=== PATIENT | male | born 1950 | race African-American/Black ===

== ENCOUNTER 2016-11-18 15:22 | Inpatient (IN) | payer MEDICARE ==
--- NOTE | ~2016-11-18 | HP ---
Unit #: [id number] #: [id number] Patient: SEBAS BARONE [id number] [facility]. [place], [place] [address] [id number] E MR#: [id number] NAME: SEBAS BARONE ROOM: Age: 66 Sex: M Admission Date: 11/18/2016 : 1950 Attending Physician: Luke Zeng D.O. Primary Care Physician: Autumn Rodriguez M.D. HISTORY AND PHYSICAL CHIEF COMPLAINT Increased confusion. HISTORY OF PRESENT ILLNESS The patient is a 66-year-old male with a past medical history of cerebrovascular accident, hypertension, hyperlipidemia, chronic kidney disease, CHF, and diabetes, who presented to the emergency department for evaluation of the above. The patient has had a five-day history of increasing generalized weakness. He has also had progressive speech problems for the past three days. The patient apparently had abnormal speech following a stroke in 1991 with some residual left-sided weakness. His speech apparently returned to normal until the past couple of days. The patient has also been generally weak. Per family, he was able to sit up but then was apparently falling to one side. He did apparently have a fall from a seated position five days ago. There was no loss of consciousness. He has not had any fever and no cough or cold symptoms. He has had constipation with the last bowel movement being three days ago. Upon arrival in the emergency department, the patient's pulse and blood pressure were 78 and 133/76, respectively. A CT of the head shows no acute abnormality. Laboratory is notable for BUN and creatinine of 23 and 1.8, respectively. Urinalysis is pending. He is being admitted to [facility] for evaluation and further treatment. PAST MEDICAL HISTORY 1. Admission to [facility] January 12-2012, for hypotension. 2. Cerebrovascular accident in 1991 with residual left-sided weakness and abnormal speech. 3. Congestive heart failure with no echocardiogram results in [facility]. 4. Hypertension. 5. Diabetes with peripheral neuropathy. 6. Chronic kidney disease. PAST SURGICAL HISTORY Cholecystectomy. SOCIAL HISTORY Patient quit smoking two years ago. He walks with a walker. There is no alcohol use. FAMILY HISTORY Unit #: [id number] #: [id number] Patient: SEBAS BARONE Notable for his mother having diabetes. ALLERGIES No known allergies. HOME MEDICATIONS 1. Aspirin. 2. Colace. 3. Folic acid. 4. Gabapentin. 5. Hydrochlorothiazide. 6. Lantus. 7. Lisinopril. 8. Omeprazole. 9. Plavix. 10. Iron. 11. Pyridoxine. 12. Harvoni. 13. Vitamin B12. 14. Simvastatin. Home medications will need to be reviewed and verified. REVIEW OF SYSTEMS A 10-point review of systems is negative except as indicated in the History of Present Illness. The patient states that his blood sugars have been in the 200s. PHYSICAL EXAMINATION VITAL SIGNS: Temperature is 97.4, pulse 78, respirations 16, blood pressure 133/76, and oxygen saturation is 100% on room air. GENERAL: Patient is an male who is awake and alert. HEENT: Head is atraumatic. Mucous membranes are moist. NECK: Supple. Trachea is midline. CARDIOVASCULAR: Regular rate and rhythm. LUNGS: Clear to auscultation bilaterally with no increased work of breathing. ABDOMEN: Soft and nontender with bowel sounds present in all four quadrants. EXTREMITIES: Nontender with no pedal edema. NEUROLOGIC: Patient is awake and alert. He is oriented x3. He follows commands. Speech is somewhat slurred. He is slow to answer questions. There is no facial asymmetry. Tongue is midline. There is no appreciable pronator drift. Rapid alternating movements are intact. Retail Pos Specialist strength is symmetric. PSYCHIATRIC: Mood and affect are normal. Patient is cooperative. SKIN: Skin of examined areas is warm and dry. DIAGNOSTIC STUDIES LABORATORY: Complete blood count is notable for MCV of 81.5. INR is 0.9. Comprehensive metabolic panel notable for sodium of 133, glucose 173, BUN and creatinine 23 and 1.8, respectively, and albumin is 3. Tylenol and salicylate levels are negative. Alcohol level is 5. IMAGING: CT of the head shows nothing acute. ASSESSMENT The patient is a 66-year-old male with: Unit #: [id number] #: [id number] Patient: SEBAS BARONE 1. Abnormal speech. The family was also concerned about increased left-sided weakness, although by my exam weakness appears to be generalized and symmetric. 2. Generalized weakness. 3. History of cerebrovascular accident with residual left-sided weakness and speech abnormality. 4. Hypertension. 5. Hyperlipidemia. 6. Chronic kidney disease. The patient's creatinine was 2 on October 23, 2016. It was 1.8 today. 7. Congestive heart failure with unknown ejection fraction. 8. Diabetes with peripheral neuropathy. 9. Former smoker. PLAN 1. Admit to intermediate level for observation. 2. N.p.o. until speech evaluation. 3. Speech Therapy to evaluate and treat. 4. Neuro checks q.4 hours. 5. MRI of the brain without contrast. 6. Consult Dr. Maciel regarding abnormal speech. 7. Stroke protocol per Neurology. 8. Bedrest. 9. Fall precautions. 10. Normal saline bolus, followed by normal saline at 75 mL/hour. 11. Check urinalysis. 12. Strict I/Os. 13. Serial cardiac enzymes. 14. EKG if not done. 15. Hemoglobin A1c. 16. Low-dose sliding scale insulin with Accu-Cheks. 17. Repeat labs in the morning. 18. SCDs for DVT prophylaxis. 19. Additional workup and consultants based on above. 1. Dictated by Nga Pham M.D. ELIDA/mckay TD: 11/18/2016 16:57 JOB #: [id number] HISTORY AND PHYSICAL X Nga Pham MD X HISTORY AND PHYSICAL
--- NOTE | ~2016-11-18 | CT71 ---
[facility] A Service of [facility] & [facility] RADIOLOGY TEXT RESULTS PATIENT: SEBAS BARONE LOCATION: C3A 339-01 : [birth year] UNIT #: [id number] AGE: [address]: Nga Pham MD SEX: M ORDER DR: [id number] [facility]. [place], [place] [address] [id number] I MR#: [id number] Acc #: [id number] NAME: SEBAS BARONE : 1950 SEX: M STUDY DATE/TIME: 11/18/2016 14:21 UNIT: CEDOF ROOM: [id number] STUDY DESCRIPTION: CT Head Wo Contrast Attending Physician: Nga Pham M.D. Ordering Physician: Luke Zeng D.O. Primary Care Physician: Autumn Rodriguez M.D. MEDICAL IMAGING REPORT This report is preliminary unless electronic signature is present EXAM Noncontrast CT of the head. DATE OF EXAM 11/18/2016 at 14:21 HISTORY 66-year-old male with confusion, weakness for 3 days. Previous history of stroke. Hypertension. Diabetes. COMPARISON Noncontrast CT head, 10/19/2013. TECHNIQUE NOTE: This CT exam was performed with one or more of the following radiation dose reduction techniques: automatic exposure control, adjustment of mA and/or kV according to patient size, and iterative reconstruction. FINDINGS Multifocal chronic-appearing bilateral lacunar infarcts are demonstrated within bilateral basal ganglia, thought to be similar to the prior exam. Hypodensities in the deep white matter of the brain are thought to represent changes of chronic microvascular disease, greatest in bifrontal regions, right greater left. Mcdermott matter - white matter junction distinction appears preserved, without convincing CT evidence of acute or evolving infarct. No acute intracranial hemorrhage, mass lesion, mass effect, midline shift is seen. There is dense mucosal thickening within bilateral ethmoid sinuses, left greater than right, suggesting features of sinusitis. Mastoid air cells are clear. Moderately advanced generalized parenchymal atrophy is present, greater than expected for the patient's stated age. Chronic-appearing infarct [facility] A Service of [facility] & [facility] RADIOLOGY TEXT RESULTS PATIENT: SEBAS BARONE LOCATION: C3A 339-01 : 48 UNIT #: [id number] AGE: [address]: Nga Pham MD SEX: M ORDER DR: within the left cerebellum, and within the left bonita huang, and within the left thalamus. IMPRESSION 1. No acute intracranial findings. 2. Advanced chronic microvascular disease changes with multifocal chronic-appearing lacunar infarcts in the bilateral basal ganglia, chronic-appearing infarct in the right anterior internal capsule limb, left thalamus, left bonita huang, left cerebellum. These findings are similar to 10/19/2013. 3. Moderate generalized atrophy, greater than expected for the patient's stated age. 4. Dense ethmoid sinus mucosal thickening. Correlate clinically for sinusitis symptoms. Dictated by... Radha Weinberg M.D. THIS IS AN ELECTRONICALLY VERIFIED REPORT Radha Weinberg M.D. at 11/19/2016 7:19 AM ALANNAH/ryann TD: 11/18/2016 17:08 JOB #: [id number] MEDICAL IMAGING REPORT COPY
--- NOTE | ~2016-11-18 | EKG ---
PATIENT: SEBAS BARONE UNIT #: [id number] Ventricular Rate: 72 BPM Atrial Rate: 72 BPM P-R Interval: 154 ms QRS Duration: 90 ms Q-T Interval: 444 ms QTC Calculation(Bezet): 486 ms P Harrison: 56 degrees Calculated R Harrison: 34 degrees Calculated T Harrison: 20 degrees Diagnosis Line: Sinus rhythm with Premature atrial complexes Diagnosis Line: Prolonged QT Diagnosis Line: Abnormal ECG Diagnosis Line: When compared with ECG of 19-OCT-2013 01:28, Diagnosis Line: No significant change was found Diagnosis Line: Confirmed by JACQUELINE GARZA MD ([id number]) on 11/19/2016 Diagnosis Line: 7:01:50 AM INTERPRETING MD: KAYLA MI
--- NOTE | ~2016-11-18 | MR122 ---
[facility] A Service of [facility] & [facility] RADIOLOGY TEXT RESULTS PATIENT: SEBAS BARONE LOCATION: C3A 339-01 : [birth year] UNIT #: [id number] AGE: [address]: Catie Gatica MD SEX: M ORDER DR: [id number] [facility] [address] [place], [place] [address] [id number] I MR#: [id number] Acc #: [id number] NAME: SEBAS BARONE : 1950 SEX: M STUDY DATE/TIME: 11/19/2016 23:16 UNIT: C3A PCU ROOM: 339 STUDY DESCRIPTION: MR MRA Head Wo Contrast Attending Physician: Catie Gatica M.D. Ordering Physician: Cheyanne Maciel M.D. Primary Care Physician: Autumn Rodriguez M.D. MRI CENTER REPORT This report is preliminary unless electronic signature is present. EXAM MR angiogram head without contrast dated 11/19/2016. COMPARISON MRI brain dated 11/18/2016 and MRA neck dated 11/19/2016. HISTORY Abnormal speech, increasing left-sided weakness. There was a history of cerebral vascular accident with residual left-sided weakness and Speech abnormality in this patient. Correlate for possible acute infarct. TECHNIQUE Source and 3-D reconstruction MIP images of the [place]itan [place] band of [place] were obtained without contrast. FINDINGS Bilateral intracranial internal carotid arteries demonstrate mild atherosclerotic irregularity with likely ezin-au-dkezmelb stenosis involving a short segment of the junction of the petrous and cavernous right ICA. Mild decrease in caliber of the supraclinoid right ICA is also seen when compared to the left. These are all likely related to atherosclerotic disease with some stenosis. Bilateral anterior cerebral arteries and middle cerebral arteries do not demonstrate any significant proximal or complete occlusion. The A1 segment of the right ESTHER has decreased caliber when compared to the left, but it is uniform, favoring hypoplasia rather than atherosclerotic disease. Small A-COM is seen. Well-defined P-COMs are not seen. Basilar artery and bilateral posterior cerebral arteries demonstrate no severe stenosis. Mild atherosclerotic irregularities are noted along the course of the right CHAIR AND COUCH MAKER. Bilateral vertebral arteries demonstrate decrease in caliber, as they extend towards the vertebrobasilar junction. It is worse in the left V4 segment. Varying degrees of stenosis along the STS. [facility] A Service of [facility] & [facility] RADIOLOGY TEXT RESULTS PATIENT: SEBAS BARONE LOCATION: C3A 339-01 : 48 UNIT #: [id number] AGE: [address]: Catie Gatica MD SEX: M ORDER DR: segment cannot be excluded. IMPRESSION 1. No aneurysm or AVM. 2. Atherosclerotic irregularities are noted in multiple vessels, relatively worse in the right ICA and bilateral vertebral arteries. Of the vertebral arteries, it is worse on the left vertebral artery. These irregularities in the vessel are likely related to atherosclerotic disease with some stenosis. No complete occlusion. 3. The A1 segment of the right ESTHER has decreased caliber when compared to the left, but it is uniform, favoring hypoplasia rather than atherosclerotic disease. STAT * RESULT Dictated by... Daniel Anne M.D. THIS IS AN ELECTRONICALLY VERIFIED REPORT Daniel Anne M.D. at 11/20/2016 4:26 PM CPR/christi TD: 11/20/2016 15:33 JOB #: [id number] MRI CENTER REPORT COPY
--- NOTE | ~2016-11-18 | MR134 ---
[facility] A Service of [facility] & [facility] RADIOLOGY TEXT RESULTS PATIENT: SEBAS BARONE LOCATION: [facility] 339-01 : 48 UNIT #: [id number] AGE: [address]: Catie Gatica MD SEX: M ORDER DR: [id number] [facility] [address] [place], [place] [address] [id number] I MR#: [id number] Acc #: [id number] NAME: SEBAS BARONE : 1950 SEX: M STUDY DATE/TIME: 11/19/2016 23:16 UNIT: A PCU ROOM: [facility] STUDY DESCRIPTION: MR MRA Neck Wo Contrast Attending Physician: Catie Gatica M.D. Ordering Physician: Cheyanne Maciel M.D. Primary Care Physician: Autumn Rodriguez M.D. MRI CENTER REPORT This report is preliminary unless electronic signature is present. EXAM MR angiogram of the neck without contrast dated 11/19/2016 COMPARISON MRI brain and MRA head without contrast dated 11/18/2016 and 11/19/2016 respectively. HISTORY Increased weakness and slurred speech for 3 days. History of prior stroke with residual left-sided deficit. Now symptoms are on the opposite right side. FINDINGS Source and 3-D reconstruction MIP images of the neck arteries were obtained without contrast. Two-vessel aortic arch is seen. There is rxxg-rs-ymlnzqol narrowing of a short segment of the left mid common carotid artery without distal flow limitation. The right internal carotid artery bulb appears to be slightly smaller when compared to the left with likely mild atherosclerotic plaque. No significant stenosis is seen. Bilateral external carotid arteries are within normal limits. Right vertebral artery is dominant. Bilateral vertebral arteries demonstrate expected course, caliber and flow. IMPRESSION 1. There is mild to moderate short segment of narrowing in the mid left common carotid artery involving a short segment. No distal flow limitation. 2. No hemodynamically flow-limiting significant stenosis in bilateral internal carotid artery bulbs per NASCET criteria. 3. The right internal carotid artery bulb is irregular and slightly narrowed when compared to the left. There is probably mild stenosis but no severe treatable significant stenosis per NASCET criteria. [facility]. [facility] A Service of [facility] & [facility] RADIOLOGY TEXT RESULTS PATIENT: SEBAS BARONE LOCATION: A 339-01 : 48 UNIT #: [id number] AGE: [address]: Catie Gatica MD SEX: M ORDER DR: Dictated by... Daniel Anne M.D. THIS IS AN ELECTRONICALLY VERIFIED REPORT Daniel Anne M.D. at 11/20/2016 2:50 PM CPR/mjs TD: 11/20/2016 09:10 JOB #: [id number] MRI CENTER REPORT COPY
--- NOTE | ~2016-11-18 | MR18 ---
[facility] A Service of [facility] RADIOLOGY TEXT RESULTS PATIENT: SEBAS BARONE LOCATION: [facility] 339-01 : 48 UNIT #: [id number] AGE: [address]: Catie Gatica MD SEX: M ORDER DR: [id number] [facility] [address] [facility]. [place], [place] [address] [id number] I MR#: [id number] Acc #: [id number] NAME: SEBAS BARONE : 1950 SEX: M STUDY DATE/TIME: 11/18/2016 19:36 UNIT: [address] ROOM: [facility] STUDY DESCRIPTION: MR Brain Wo Contrast Attending Physician: Nga Pham M.D. Ordering Physician: Nga Pham M.D. Primary Care Physician: Autumn Rodriguez M.D. MRI CENTER REPORT This report is preliminary unless electronic signature is present. EXAM MRI brain without contrast HISTORY Generalized weakness and abnormal speech for 3 days. Prior cerebral infarct, chronic. TECHNIQUE MRI brain was performed without contrast. FINDINGS There is a subcentimeter focal area of restricted diffusion in the left parieto-occipital junction subcortical white matter, suggesting a recent infarct or ischemia. There are additional, moderately extensive, chronic ischemic changes in the subcortical and periventricular white matter bilaterally, and chronic infarcts in the bilateral basal ganglia and chronic ischemic changes in the huang. Additional small chronic infarcts in the cerebellar hemispheres bilaterally. Moderate generalized cerebral cortical atrophy. Small chronic infarct in the left cerebral peduncle. No midline shift. No extraaxial fluid collection. IMPRESSION 1. Subcentimeter focal area of recent ischemia or infarct in the left frontoparietal junction subcortical white matter. 2. No additional recent ischemia or infarct. 3. Moderately extensive chronic ischemic changes in the periventricular and subcortical white matter bilaterally. Chronic infarct in the basal ganglia bilaterally. 4. Small chronic multifocal bilateral cerebellar infarcts. 5. Chronic ischemic changes in the huang and small chronic infarct in the left cerebral peduncle. [facility] A Service of [facility] RADIOLOGY TEXT RESULTS PATIENT: SEBAS BARONE LOCATION: C3A 339-01 : [birth year] UNIT #: [id number] AGE: [address]: Catie Gatica MD SEX: M ORDER DR: Dictated by... Edson Jamison M.D. THIS IS AN ELECTRONICALLY VERIFIED REPORT Edson Jamison M.D. at 11/19/2016 2:45 PM DFL/pcl TD: 11/18/2016 21:58 JOB #: [id number] MRI CENTER REPORT COPY
--- NOTE | ~2016-11-18 | DS ---
Unit #: [id number] #: [id number] Patient: SEBAS BARONE [id number] [address] [place], [place] [address] [id number] I MR#: [id number] NAME: SEBAS BARONE ROOM: 339 Age: 66 Sex: M Admission Date: 11/19/2016 : 1950 Discharge Date: Attending Physician: Catie Gatica M.D. Primary Care Physician: Autumn Rodriguez M.D. DISCHARGE SUMMARY PLANNED DATE OF DISCHARGE 11/21/2016 PRINCIPAL DIAGNOSES 1. Subacute left frontoparietal embolic cerebrovascular accident with associated dysphonia. 2. Aortic atheroma, source of the patient's stroke. 3. Dysphagia. 4. Right lower lobe aspiration pneumonia. 5. Chronic kidney disease stage 3 with baseline creatinine of approximately 1.7. 6. Diabetes mellitus type 2, insulin requiring and uncontrolled with hemoglobin A1C of 8.9. 7. Chronic systolic congestive heart failure, ejection fraction of 30% to 35%. No acute exacerbation. Followed by Dr. Smith. 8. Hypertension. 9. Moderate protein malnutrition. 10. Prior history of stroke. 11. Diabetic peripheral neuropathy. 12. Gastroesophageal reflux disease. 13. History of iron deficiency anemia. CONSULTANTS Dr. Maciel, neurology. PROCEDURES 1. Transesophageal echocardiogram on November 19, 2016 with ejection fraction of 35% to 40%. Mild concentric left ventricular hypertrophy. Mildly dilated left atrium noted. No interatrial shunt. Sodq-yq-azvbeujh mitral regurgitation. Mild tricuspid regurgitation. No evidence of vegetation or clot in the left atrial appendage. Aorta has severe atherosclerosis with probable atheromas. 2. CT of the head without contrast on November 18, 2015 with advanced chronic microvascular ischemic changes and lacunar infarcts in the bilateral basal ganglia and right anterior internal capsule, left thalamus, left bonita huang and left cerebellum. Moderate generalized atrophy noted. Dense ethmoid sinus mucosal thickening. 3. Chest x-ray on November 18, 2016 with cardiomegaly and infiltrate at the right base. 4. MRI of the brain without contrast on November 18, 2016 with a subcentimeter focal area of recent ischemia or infarct in the left frontoparietal junction. No recent ischemia or infarct. Extensive chronic ischemic changes noted bilaterally. Chronic multifocal Unit #: [id number] #: [id number] Patient: IMELDA BARONEILE bilateral cerebellar infarcts also noted. Chronic ischemic change in the huang and small chronic infarct in the left cerebral peduncle. 5. MRA of head and neck on November 19, 2016 with mild to moderate short segment of narrowing in the mid left common carotid artery. There is no distal flow limitation. There is no hemodynamically flow-limiting stenosis in the bilateral internal carotid artery bulbs bilaterally. Right internal carotid artery bulb is irregular and slightly narrowed but no severe treatable disease per NASCET criteria. CLINICAL HISTORY AND HOSPITAL COURSE Mr. Barone is a nice 66-year-old -[place] male with a prior history of stroke and vascular disease who presents to the emergency department with increasing weakness and speech difficulty. Please refer to H and P for further details. A CT scan of the head in the emergency department was unremarkable. The patient was subsequently admitted for further evaluation. Given the patient's speech abnormality, Dr. Maciel was consulted and stroke workup was initiated. MRI of the brain was done which did indeed reveal a subcentimeter focus of ischemia in the left frontoparietal junction which would be responsible for the patient's symptoms. Given the patient has had multiple strokes per MRI and they have been bilateral, a workup for an embolic source proceeded. Patient underwent ANDRE with findings of severe atherosclerotic disease of the aorta which is likely the source of his strokes. He was being maintained on aspirin and Plavix previously but given significant atheroma we are going to change patient to bridging Lovenox with subsequent long-term Coumadin therapy. This will have to be monitored closely given his variable diet and his history of falls. This has all been discussed with the patient's who expressed her understanding. I will note the patient was maintained on a heparin drip during hospitalization but is now being transitioned to Lovenox therapy and Coumadin. Patient does have a history of chronic kidney disease, baseline creatinine is approximately 1.7 and this is where it has remained throughout his hospitalization. Nephrotoxic medications should be held though I am going to continue his SHIV inhibitor given his diabetes and renal function will be monitored closely. Blood pressure here has also remained stable. The patient's other chronic conditions remained stable. The one exception is that he does have some symptoms of dysphagia at home intermittently and was seen by Speech Therapy and found to have rather significant dysphagia. His diet has been modified and we will continue with this modified diet at [facility]. He did also have an associated pneumonia but has had no fever nor any leukocytosis and I am only going to treat for five days with antibiotics. He has received some antibiotics during hospitalization. DISCHARGE CONDITION Stable. DISCHARGE STATUS Transfer to [facility] on November 21, 2016. DISCHARGE MEDICATIONS 1. Neurontin 600 mg b.i.d. 2. Colace 200 mg q.h.s. 3. Lipitor 80 mg q.h.s. Unit #: [id number] #: [id number] Patient: SEBAS BARONE 4. Lisinopril 20 mg daily. 5. Levemir 8 units subcu b.i.d. 6. NovoLog low dose sliding scale with meals. 7. Ferrous gluconate 324 mg daily. 8. Protonix 40 mg daily. 9. Folic acid 1 mg daily. 10. Pyridoxine 100 mg daily. 11. Vitamin B12 500 mcg p.o. daily. 12. Lovenox 80 mg subcu q.12 h. to stop when INR is greater than or equal to 2.0. 13. Coumadin 5 mg p.o. daily with goal of 2 to 3. 14. Augmentin 875 mg p.o. b.i.d. to stop after dose given on November 23, 2016. DISCHARGE INSTRUCTIONS 1. The patient is currently on a mechanical soft diet with ground meats, no mixed consistencies and nectar-thickened liquids. He should follow with (1) and this has all been discussed with the patient and his . 2. He should continue Accu-Cheks a.c. and h.s. as he was doing previously. 3. The patient needs a followup INR done on November 22, 2016, again with goal INR of 2 to 3 and discontinuation of Lovenox when INR is therapeutic. FOLLOWUP 1. Patient will follow up with his primary care physician Dr. Autumn Rodriguez upon discharge from [facility]. 2. He should follow up with Dr. Giuliano Paniagua of outpatient neurology as well in approximately four weeks. Time spent on discharge 47 minutes. Dictated by... Catie Gatica M.D. ADELE/shane TD: 11/20/2016 18:37 JOB #: [id number] DISCHARGE SUMMARY X Catie Gatica MD X DISCHARGE SUMMARY
--- NOTE | ~2016-11-18 | CR72 ---
[facility] A Service of [facility] & [facility] RADIOLOGY TEXT RESULTS PATIENT: SEBAS BARONE LOCATION: A 339-01 : [birth year] UNIT #: [id number] AGE: [address]: Catie Gatica MD SEX: M ORDER DR: [id number] [facility] [address] [address] [facility] [address] [facility]. [place], [place] [address] [id number] E MR#: [id number] Acc #: [id number] NAME: SEBAS BARONE : 1950 SEX: M STUDY DATE/TIME: 11/18/2016 14:30 UNIT: [facility] ROOM: STUDY DESCRIPTION: CR Chest Single View Portable Attending Physician: Luke Zeng D.O. Ordering Physician: Luke Zeng D.O. Primary Care Physician: Autumn Rodriguez M.D. MEDICAL IMAGING REPORT This report is preliminary unless electronic signature is present EXAM Chest x-ray, 11/18 INDICATION Shortness of air and increased confusion today. History of hypertension. FINDINGS AP portable chest is compared with 02/11/2015. There is new infiltrate at the right base which could reflect atelectasis or pneumonia. Lungs otherwise are clear. No pneumothorax. There is cardiomegaly. There are multiple old right rib fractures. IMPRESSION Cardiomegaly with infiltrate at the right lung base which may reflect pneumonia or atelectasis. Dictated by... Xavier Nelson Jr., M.D. THIS IS AN ELECTRONICALLY VERIFIED REPORT Xavier Nelson Jr., M.D. at 11/19/2016 2:52 PM TIARRA/kelin TD: 11/18/2016 16:28 JOB #: [id number] MEDICAL IMAGING REPORT COPY
--- NOTE | ~2016-11-18 | CO ---
Unit #: [id number] #: [id number] Patient: SEBAS BARONE [id number] [facility] [address] [facility]. [place], [place] [address] [id number] I MR#: [id number] NAME: SEBAS BARONE ROOM: 339 Age: 66 Sex: M Admission Date: 11/18/2016 : 1950 Attending Physician: Catie Gatica M.D. Primary Care Physician: Autumn Rodriguez M.D. Consultation Date: 11/19/2016 CONSULTATION REPORT PRIMARY CARE PHYSICIAN Dr. Autumn Rodriguez. He also sees Dr. Chavarria at [facility] as his PCP. REASON FOR CONSULT Abnormal speech. PATIENT IDENTIFICATION This is a 66-year-old, right-handed, male, evaluated in room 339 at [facility]. SOURCE OF INFORMATION Obtained from the patient's at the bedside as well as medical record. HISTORY OF PRESENT ILLNESS This is a 66-year-old, right-handed male with a past medical history of CVA in 1991, CHF, diabetes mellitus type 2, chronic kidney disease, peripheral arterial disease, who presents to [facility] with complaints of abnormal speech for 3 days. Most of my discussion was done with the patient's at the bedside as the patient does have difficulty with speech. He is withdrawn and is a poor historian. He is very quiet throughout interview. His is at the bedside and is very pleasant and his primary caregiver and helps him with his activities of daily living. She states that over the last 2 to 3 years, he has had a progressive decline. She states that he had a stroke in 1991, had some weakness with that, but she states that he got better and continued to be independent working outside the home, driving etc. She states that over the last 2 to 3 years, he has had a progressive decline in his abilities. He ambulates with a walker. Requires help with ADL. He is very unsteady on his feet. She states that a few days ago she noticed that his speech was different. She states since it did not get better that she felt like he should come to the hospital for further evaluation. He had a head CT done without contrast on arrival on 11/18/2016 that shows no acute intracranial findings and shows advanced chronic microvascular disease changes and multifocal chronic appearing lacunar infarcts in the bilateral basal ganglia, chronic appearing infarct in the right anterior internal capsule, left thalamus, left hemipons, and left cerebellum. Similar to findings from 2014, moderate generalized atrophy greater than expected for the patient's age, dense ethmoid sinus mucosal thickening. He had an MRI of the brain done without contrast also on the day of admission that showed a subcentimeter focal area of recent ischemia in the left frontal parietal junction and subcortical white matter. No additional recent ischemia or infarct. Moderate extensive Unit #: [id number] #: [id number] Patient: SEBAS BARONE chronic ischemic changes in the periventricular and subcortical white matter bilaterally, chronic infarct in the basal ganglia bilaterally, small chronic multifocal bilateral cerebellar infarcts, chronic ischemic changes in the huang and small chronic infarct in the left cerebral peduncle. He had an EKG done that shows sinus rhythm with PACs, prolonged QT. He was admitted for further workup and evaluation of his symptoms and new ischemic CVA. According to his , he has also been having becoming increasingly unsteady and actually had a fall from a seated position 5 days ago. There was no loss of consciousness or any focal findings at that time. PAST MEDICAL HISTORY 1. Admission to [facility] in 2012 for hypotension. 2. CVA in 1991. His is unable to tell me what exactly his deficits were other than he was weak although in the medical record, it is documented that he had left-sided weakness and abnormal speech. The patient's tells me that he was back to normal quickly thereafter and was independent up until a few years ago. 3. Congestive heart failure. 4. Hypertension. 5. Diabetes with diabetic peripheral neuropathy. 6. Chronic kidney disease. 7. Peripheral arterial disease according to the patient's at the bedside. 8. Cholecystectomy. 9. Reformed smoker. He apparently quit 2 years ago. 10. Gallbladder removal. 11. Hyperlipidemia. 12. GERD. 13. Acute kidney injury. ALLERGIES No known drug allergies. HOME MEDICATIONS As per med rec include aspirin 81 mg p.o. daily, Plavix 75 mg p.o. daily, iron 325 mg p.o. daily, glipizide XL 5 mg p.o. b.i.d., hydrochlorothiazide 12.5 mg p.o. daily, lisinopril 10 mg p.o. daily, pyridoxine 100 mg p.o. daily, omeprazole 20 mg p.o. daily, folic acid 1 mg p.o. daily, docusate sodium 250 mg p.o. q.h.s., Lantus 20 units subcu q.h.s., B12 of 500 mcg p.o. daily, gabapentin 600 mg p.o. b.i.d., simvastatin 40 mg p.o. q.h.s. FAMILY HISTORY Positive for diabetes. SOCIAL HISTORY The patient lives with his . She helps with his ADLs. He ambulates with a walker. He has had a progressive decline over the last 2 to 3 years according to her. No alcohol use or illicit drug use. No tobacco use currently, but he smoked for several years up until 2 years ago. REVIEW OF SYSTEMS Unable to obtain from the patient. He is a very poor historian. He has difficulty with speech. He does admit that his speech has changed, otherwise review of systems was obtained from the patient's at the bedside and as discussed above. PHYSICAL EXAMINATION Unit #: [id number] #: [id number] Patient: SEBAS BARONE VITAL SIGNS: Temperature 97.5, pulse 75, respirations 18, blood pressure 169/88, oxygen saturation 97%. Height 6 feet 1 inch, weight 183 pounds. BMI 24. NEUROLOGIC: The patient is awake. He is withdrawn. He has difficulty with speech, has dysphonia or dysarthria. He has copious secretions. He follows simple commands. Has hesitancy of speech. Appears withdrawn. He is oriented to person. He can tell me where he is. He makes attempts to tell me the month, the day of the week and the year, but has difficulty with getting his words out. He recognizes his at the bedside. Cranial nerve exam, he responds to threats in the primary and peripheral visual pedraza. Eyes are conjugate without ptosis or nystagmus. Extraocular movements are intact. Sensation of face and scalp is intact. Strength of muscles of facial expression is intact. Hearing is intact to conversation. Tongue is midline. Unable to visualize uvula and palate. He has copious secretions upon evaluation of his oral cavity. Head turning and shoulder shrug are unremarkable. Neck is supple. Motor exam, he has decreased bulk. Tone appears to be intact. He is generally weak all over, but has no focal weakness appreciated. Dress Cap Maker strength is equal. Gait and Romberg deferred. Reflexes, unable to elicit. Toes are equivocal. Sensory exam is without extinction. He does have decreased sensation distally compared to proximally. Coordination unremarkable. DIAGNOSTIC STUDIES IMAGING STUDIES: Please see above. LABORATORY RESULTS: TSH 1.29. PTT 55.5. CRP 1.8. Hemoglobin A1c 8.9. Sodium 135, potassium 4.2, chloride 108, CO2 of 22, glucose 132, BUN 24, creatinine 1.6, estimated GFR 55.6, calcium 8, AST 21, ALT 12, alkaline phosphatase 55, total protein 6.6, albumin 2.6, cholesterol 160, triglycerides 79, LDL 112, HDL 32. White blood cell count 7.8, hemoglobin 12.5, hematocrit 38.8, and platelet count 158. Urine drug screen unremarkable. PT 9.9, INR 0.9, PTT 28.2. IMPRESSION 1. Subacute left frontoparietal ischemic cerebrovascular accident with altered speech and expressive difficulties. Concern for cardioembolic versus thrombotic source. 2. History of cerebrovascular accident in 1991. 3. Extensive small-vessel disease and stroke burden was also noted chronic cerebellar cerebrovascular accident. 4. Abnormal transesophageal echocardiogram with severe atherosclerosis of the aorta, questionable atheroma limited by decreased visualization. 5. Diabetes mellitus type 2 with diabetic peripheral neuropathy. 6. Peripheral arterial disease. 7. Chronic kidney disease. 8. Congestive heart failure. 9. Reformed smoker. 10. Chest x-ray concerning for aspiration pneumonia from the day of admission on 11/18/2016, present on admission. PLAN Continue heparin drip. Likely he needs warfarin ideally long-term, however, as the patient is a good candidate given his history of falls, I spoke with his at length regarding stroke burden and associated complications of that and reviewed MRI findings with her. He has had a progressive decline over the last 2 to 3 years. I have discussed case with Dr. Maciel who has seen the patient as well and agrees with the above. He has failed aspirin and Plavix and has an abnormal, but limited Unit #: [id number] #: [id number] Patient: SEBAS BARONE ANDRE. Speech has evaluated the patient. He has undergone a video swallow and has a modified diet. Certainly, swallowing is also an issue. He will likely need rehab. We will start the patient on Lipitor 80 mg p.o. daily and stop his Zocor and further recommendations regarding anticoagulation will be made during his hospital stay by Dr. Maciel and the primary physician. Please call for any questions or issues. Please also note, MRA of the head and neck is pending to rule out carotid etiology. Again, he has significant small vessel disease. We thank you very much for allowing us to assist in the care of this patient. Dictated by... Valerie Loving A.P.R.N. for Eduardo Chance/elroy TD: 11/20/2016 01:48 JOB #: [id number] CONSULTATION REPORT X Valerie Loving HONING MACHINE OPERATOR SEMIAUTOMATIC X CONSULTATION REPORT
[2016-11-18 14:25] LABS: BASOPHIL# 0.1 X10e3 (0-0.3); BASOPHIL% 0.7 % (0-2.5); EOSINOPHIL# 0.2 X10e3 (0-0.7); EOSINOPHIL% 2.3 % (0.0-7.0); HEMOGLOBIN 13.1 gm/dL (13.0-16.0); LYMPHOCYTE# 3.1 X10e3 (1.0-3.5); MEAN CELL VOLUME 81.5 FL (83-96); MEAN CORPUSCULAR HEMOGLOBIN 26.6 PG (28-34); MEAN CORPUSCULAR HGB CONC 32.7 g/dL (30-36); MEAN PLATELET VOLUME 9.4 FL (6.5-11.5); MONOCYTE% 11.4 % (3.0-12.0); NEUTROPHIL# 4.3 X10e3 (1.5-7.1); NEUTROPHIL% 49.6 % (40-75); PLATELET COUNT 160 X10e3 (140-420); RED BLOOD COUNT 4.91 X10e (3.90-5.60); RED CELL DISTRIBUTION WIDTH 13.9 % (11.0-15.5); WHITE BLOOD COUNT 8.6 X10e3 (4.0-10.5)
[2016-11-18 14:29] LABS: DIFF IND NO
[2016-11-18 14:46] LABS: INR 0.9; PARTIAL THROMBOPLASTIN TIME 28.2 SECONDS (23.5-31.3); PROTHROMBIN TIME (PATIENT) 9.9 SECONDS (9.6-11.5)
[2016-11-18 14:52] LABS: ALCOHOL BLOOD 5 mg/dL (0); ALKALINE PHOSPHATASE 62 U/L (32-92); ALT (SGPT) 15 U/L (10-40); AST (SGOT) 26 U/L (10-42); BILIRUBIN, DIRECT 0.1 mg/dL (0.0-0.2); BILIRUBIN,INDIRECT 0.3 mg/dL (0.0-0.9); BILIRUBIN,TOTAL 0.4 mg/dL (0.2-2.0); BLOOD UREA NITROGEN 23 mg/dL (9-23); BUN/CREATININE RATIO 12.77; CALCIUM SERUM 8.6 mg/dL (8.4-10.2); CARBON DIOXIDE 23 mmol/L (22-31); CHLORIDE 101 mmol/L (100-111); CREATININE SERUM 1.8 mg/dL (0.6-1.4); GLOM FILT RATE Estimated 48.5 mL/min (>60); GLUCOSE FASTING 173 mg/dL (70-110); POTASSIUM 3.8 mmol/L (3.5-5.1); SALICYLATE <4.0 mg/dL; SODIUM 133 mmol/L (135-145)
[2016-11-18 14:53] LABS: ACETAMINOPHEN <10 ug/mL
[~2016-11-18 15:22] MED LIST: AGGRENOX PO; B6100 MG PO; CHEWABLE ASPIRI81 MG PO; CIPRO PO; COLACE; COLACE PO; FINASTERIDE5 MG PO; FLOMAX0.4 M1 PO; FOLIC ACID; FOLIC ACID PO; FOLIC ACID1 MG PO; GLUCOTROL; GLUCOTROL PO; HCTZ; HCTZ PO; HYDROCHLOROTHIA25 MG PO; INSULIN SUBQ; IRON325 ( 652 PO; LANTUS100 U/ML; LANTUS100 U/ML SUBQ; LISINOPRIL PO; LISINOPRIL10 MG; NEURONTIN PO; NEURONTIN600 MG; NIFEREX-150150 MG PO; PAXIL PO; PLAVIX PO; PRILOSEC; PRILOSEC PO; PRILOSEC20 MG PO; PRINIVIL20 M1 PO; PROBIOTIC1 EAC1 PO; PYRIDOXINE HCL; PYRIDOXINE PO; VIT B-12 PO; VIT E PO; VITAMIN B-12500 MCG PO; VITAMIN B122500 MC1; ZOCOR; ZOCOR PO; ZOFRAN ODT4 MG PO
[2016-11-18] MEDS ORDERED: ASPIRIN81 MG PO (16:16)
[2016-11-18] MEDS ORDERED: IRON325 MG PO (16:17)
[2016-11-18] MEDS ORDERED: CLOPIDOGREL75 MG PO (16:17)
[2016-11-18] MEDS ORDERED: HYDROCHLOROTH12.5 MG PO (16:19)
[2016-11-18] MEDS ORDERED: GLIPIZIDE5 MG/BOTT1 PO (16:19)
[2016-11-18] MEDS ORDERED: LISINOPRIL10 MG PO (16:21)
[2016-11-18] MEDS ORDERED: LANTUS100 UNITS/ SUBQ (16:21)
[2016-11-18] MEDS ORDERED: PYRIDOXINE HCL100 MG PO (16:21)
[2016-11-18] MEDS ORDERED: FOLIC ACID1 MG PO (16:22)
[2016-11-18] MEDS ORDERED: OMEPRAZOLE20 M2 PO (16:22)
[2016-11-18] MEDS ORDERED: STOOL SOFTENER250 MG PO (16:23)
[2016-11-18] MEDS ORDERED: LANTUS100 U/ML SUBQ (16:24)
[2016-11-18] MEDS ORDERED: B-12500 MC1 PO (16:25)
[2016-11-18] MEDS ORDERED: GABAPENTIN600 MG PO (16:25)
[2016-11-18] MEDS ORDERED: SIMVASTATIN40 MG PO (16:26)
[2016-11-18 18:26] LABS: %MB 1.1 % (0.0-4.0)
[2016-11-18 22:10] LABS: URINE SOURCE CLEAN CATCH
[2016-11-18 22:21] LABS: URINE APPEARANCE CLEAR; URINE BILIRUBIN NEG (NEG); URINE BLOOD TRACE (NEG); URINE COLOR YELLOW; URINE GLUCOSE NEG (NEG); URINE KETONE NEG (NEG); URINE LEUKOCYTE ESTERASE NEG (NEG); URINE NITRATE NEG (NEG); URINE PH 5.5 (5-8); URINE PROTEIN 3+ (NEG); URINE SPECIFIC GRAVITY 1.013 (1.003-1.035)
[2016-11-18 22:25] LABS: U HYALINE CASTS AUWI 0-2 /[LPF]; URINE BACTERIA AUWI NEG (NEGATIVE); URINE SQUAMOUS EPITHELIAL CELL NONE SEEN /[HPF]
[2016-11-18 22:30] LABS: CULTURE INDICATED? NO
[2016-11-18 22:44] LABS: AMPHETAMINE NEG (NEG); BARBITURATES NEG (NEG); BENZODIAZEPINES NEG (NEG); COCAINE NEG (NEG); MARIJUANA NEG (NEG); OPIATES NEG (NEG); TRICYCLIC ANTIDEPRESSANTS NEG (NEG); U METHADONE NEG (NEG)
[2016-11-19 05:37] LABS: BASOPHIL# 0.1 X10e3 (0-0.3); EOSINOPHIL# 0.2 X10e3 (0-0.7); EOSINOPHIL% 2.8 % (0.0-7.0); HEMATOCRIT 38.8 % (38.0-50.0); HEMOGLOBIN 12.5 gm/dL (13.0-16.0); LYMPHOCYTE# 3.9 X10e3 (1.0-3.5); LYMPHOCYTE% 49.7 % (17.0-45.0); MEAN CELL VOLUME 81.4 FL (83-96); MEAN CORPUSCULAR HEMOGLOBIN 26.2 PG (28-34); MEAN CORPUSCULAR HGB CONC 32.2 g/dL (30-36); MEAN PLATELET VOLUME 9.5 FL (6.5-11.5); MONOCYTE# 0.8 X10e3 (0-1.0); MONOCYTE% 10.2 % (3.0-12.0); NEUTROPHIL# 2.8 X10e3 (1.5-7.1); NEUTROPHIL% 36.3 % (40-75); PLATELET COUNT 158 X10e3 (140-420); RED BLOOD COUNT 4.77 X10e (3.90-5.60); RED CELL DISTRIBUTION WIDTH 14.1 % (11.0-15.5); WHITE BLOOD COUNT 7.8 X10e3 (4.0-10.5)
[2016-11-19 05:43] LABS: DIFF IND NO
[2016-11-19 07:07] LABS: ALBUMIN SERUM 2.6 g/dL (3.5-5.0); BILIRUBIN,TOTAL 0.5 mg/dL (0.2-2.0); CREATININE SERUM 1.6 mg/dL (0.6-1.4); GLOM FILT RATE Estimated 55.6 mL/min (>60); POTASSIUM 4.2 mmol/L (3.5-5.1); PROTEIN TOTAL SERUM 6.6 g/dL (6.0-8.3)
[2016-11-20 07:18] LABS: HEMOGLOBIN 12.4 gm/dL (13.0-16.0); MEAN CELL VOLUME 81.2 FL (83-96); MEAN CORPUSCULAR HEMOGLOBIN 26.5 PG (28-34); MEAN CORPUSCULAR HGB CONC 32.7 g/dL (30-36); MEAN PLATELET VOLUME 10.2 FL (6.5-11.5); RED BLOOD COUNT 4.68 X10e (3.90-5.60); WHITE BLOOD COUNT 9.3 X10e3 (4.0-10.5)
[2016-11-20 07:56] LABS: BUN/CREATININE RATIO 14.11; CALCIUM SERUM 8.6 mg/dL (8.4-10.2); CREATININE SERUM 1.7 mg/dL (0.6-1.4); GLOM FILT RATE Estimated 51.8 mL/min (>60); POTASSIUM 4.7 mmol/L (3.5-5.1)
[2016-11-20 21:10] LABS: PROTHROMBIN TIME (PATIENT) 10.4 SECONDS (9.6-11.5)
== END 2016-11-21 16:15 | DRG 64 ==
LOC: CED 15:22 → C3A PCU 11-19 12:25
PROVIDERS: Emergency Medicine; Family Medicine; Internal Medicine
PROC: B24BZZ4 Ultrasonography of Heart with Aorta, Transesophageal (ICD-10-PCS; principal; 2016-11-19)
PROC: B33RZZZ Magnetic Resonance Imaging (MRI) of Intracranial Arteries (ICD-10-PCS; 2016-11-20)
PROC: B338ZZZ Magnetic Resonance Imaging (MRI) of Bilateral Internal Carotid Arteries (ICD-10-PCS; 2016-11-20)
PROC: B33GZZZ Magnetic Resonance Imaging (MRI) of Bilateral Vertebral Arteries (ICD-10-PCS; 2016-11-20)
DX: I63.442 Cerebral infarction due to embolism of left cerebellar artery (principal); J69.0 Pneumonitis due to inhalation of food and vomit; I13.0 Hypertensive heart and chronic kidney disease with heart failure and stage 1 through stage 4 chronic kidney disease, or unspecified chronic kidney disease; I50.22 Chronic systolic (congestive) heart failure; E44.0 Moderate protein-calorie malnutrition; I69.954 Hemiplegia and hemiparesis following unspecified cerebrovascular disease affecting left non-dominant side; E11.22 Type 2 diabetes mellitus with diabetic chronic kidney disease; E78.5 Hyperlipidemia, unspecified; E11.42 Type 2 diabetes mellitus with diabetic polyneuropathy; Z87.891 Personal history of nicotine dependence; I73.9 Peripheral vascular disease, unspecified; K21.9 Gastro-esophageal reflux disease without esophagitis; Z90.49 Acquired absence of other specified parts of digestive tract; I70.0 Atherosclerosis of aorta; N18.3 Chronic kidney disease, stage 3 (moderate); E11.65 Type 2 diabetes mellitus with hyperglycemia; Z79.4 Long term (current) use of insulin; R13.10 Dysphagia, unspecified; R49.0 Dysphonia
CPT/HCPCS: 36415; 70450; 70544; 70547; 70551; 71010; 74230; 80048; 80053; 80061; 80076; 80307; 81003; 82550; 82553; 82947; 83036; 84443; 84484; 85025; 85027; 85610; 85730; 86140; 87086; 92507; 92523-GN; 92526; 92610; 92611; 93005; 93312; 97116; 97163; 97167; 97535; 99285; G0480; G8978-GP; G8979-GP; G8987-GO; G8988-GO; G8996-GN; G8997-GN; J1644; J1650; J1815; J1956; J2250; J3010

== ENCOUNTER → 2016-12-11 | Outpatient (CLI) | payer MEDICARE ==
[~2016-12-11] MED LIST changes: +ALFUZOSIN HCL10 MG PO; +ASPIRIN81 MG PO; +B-12500 MC1 PO; +CLOPIDOGREL75 MG PO; +COUMADIN6 MG PO; +FLUOXETINE HCL10 MG PO; +GABAPENTIN600 MG PO; +GLIPIZIDE5 MG/BOTT1 PO; +GLUCOTROL10 MG PO; +HYDROCHLOROTH12.5 MG PO; +IRON325 MG PO; +LANTUS100 UNITS/ SUBQ; +LAXATIVE8.6 M1 PO; +LIPITOR80 MG PO; +LISINOPRIL10 MG PO; +OMEPRAZOLE20 M2 PO; +PANTOPRAZOLE SO40 MG PO; +PYRIDOXINE HCL100 MG PO; +SIMVASTATIN40 MG PO; +STOOL SOFTENER250 MG PO; +WARFARIN SODIUM2 M1 PO
[2016-12-11 12:49] LABS: BASOPHIL% 0.4 % (0-2.5); EOSINOPHIL# 0.2 X10e3 (0-0.7); EOSINOPHIL% 2.2 % (0.0-7.0); HEMATOCRIT 43.8 % (38.0-50.0); HEMOGLOBIN 13.9 gm/dL (13.0-16.0); LYMPHOCYTE# 3.2 X10e3 (1.0-3.5); LYMPHOCYTE% 38.5 % (17.0-45.0); MEAN CELL VOLUME 82.5 FL (83-96); MEAN CORPUSCULAR HEMOGLOBIN 26.2 PG (28-34); MEAN CORPUSCULAR HGB CONC 31.8 g/dL (30-36); MEAN PLATELET VOLUME 9.5 FL (6.5-11.5); MONOCYTE# 0.7 X10e3 (0-1.0); MONOCYTE% 8.8 % (3.0-12.0); NEUTROPHIL# 4.2 X10e3 (1.5-7.1); NEUTROPHIL% 50.1 % (40-75); PLATELET COUNT 194 X10e3 (140-420); RED BLOOD COUNT 5.32 X10e (3.90-5.60); RED CELL DISTRIBUTION WIDTH 14.9 % (11.0-15.5); WHITE BLOOD COUNT 8.3 X10e3 (4.0-10.5)
[2016-12-11 12:58] LABS: DIFF IND NO
[2016-12-11 13:04] LABS: URINE APPEARANCE CLEAR; URINE BILIRUBIN NEG (NEG); URINE BLOOD 1+ (NEG); URINE COLOR YELLOW; URINE GLUCOSE NEG (NORM); URINE KETONE NEG (NEG); URINE LEUKOCYTE ESTERASE NEG (NEG); URINE NITRATE NEG (NEG); URINE PH 5.5 (5-8); URINE PROTEIN 2+ (NEG); URINE UROBILINOGEN 0.2 MG/DL (NORM)
[2016-12-11 13:15] LABS: MICRO INDICATED? YES
[2016-12-11 13:19] LABS: ALBUMIN SERUM 3.4 g/dL (3.5-5.0); BILIRUBIN,TOTAL 0.4 mg/dL (0.2-2.0); BUN/CREATININE RATIO 13.75; CALCIUM SERUM 8.9 mg/dL (8.4-10.2); CREATININE SERUM 1.6 mg/dL (0.6-1.4); GLOM FILT RATE Estimated 55.6 mL/min (>60); POTASSIUM 4.9 mmol/L (3.5-5.1); PROTEIN TOTAL SERUM 8.4 g/dL (6.0-8.3)
[2016-12-11 13:40] LABS: URINE BACTERIA NEG (NEG); URINE RBC 0-2 /[HPF] (0-2); URINE SQUAMOUS EPITHELIAL CELL OCCAS /[HPF]; URINE WBC 0-2 /[HPF] (0-5)
[2016-12-11 16:02] LABS: CREATININE,RANDOM URINE 112 mg/dL; TOTAL PROTEIN,RANDOM URINE 205 mg/dl (<10)
== END | disposition home or self-care (01) ==
LOC: SLAB 12:36
PROVIDERS: Internal Medicine Nephrology
DX: N18.3 Chronic kidney disease, stage 3 (moderate) (principal)
CPT/HCPCS: 36415; 80053; 81003; 82570; 84156; 85025

== ENCOUNTER 2017-01-31 20:05 | Emergency (ER) | payer MEDICARE ==
--- NOTE | ~2017-01-31 | CR72 ---
[facility] A Service of [facility] & [facility] RADIOLOGY TEXT RESULTS PATIENT: SEBAS BARONE LOCATION: [facility] : 48 UNIT #: [id number] AGE: [address]: Rory Núñez MD SEX: M ORDER DR: [id number] [facility] [address] [place], [place] [address] [id number] E MR#: [id number] Acc #: [id number] NAME: SEBAS BARONE : 1950 SEX: M STUDY DATE/TIME: 01/31/2017 20:18 UNIT: [facility] ROOM: STUDY DESCRIPTION: CR Chest Single View Portable Attending Physician: Rory Núñez M.D. Ordering Physician: Rory Núñez M.D. Primary Care Physician: Autumn Rodriguez M.D. MEDICAL IMAGING REPORT This report is preliminary unless electronic signature is present EXAM Portable chest. HISTORY Weakness, and congestion today. FINDINGS The cardiac size and pulmonary vascularity are normal. No focal infiltrates or effusions on the left. Mild linear atelectasis or scarring at the right lung base and minimal fluid or pleural thickening at the right base. Old healed right rib fractures. IMPRESSION 1. No active disease in the lungs. 2. Small amount of fluid or pleural thickening at the right base is similar to 12/24/2016. 3. New mild linear atelectasis or scarring at the right base. Dictated by... Edson Jamison M.D. THIS IS AN ELECTRONICALLY VERIFIED REPORT Edson Jamison M.D. at 02/01/2017 1:54 PM JOSE/kenia TD: 02/01/2017 01:13 JOB #: [id number] MEDICAL IMAGING REPORT Page 1 of 1 COPY
--- NOTE | ~2017-01-31 | EKG ---
PATIENT: SEBAS BARONE UNIT #: [id number] Ventricular Rate: 75 BPM Atrial Rate: 75 BPM P-R Interval: 154 ms QRS Duration: 88 ms Q-T Interval: 434 ms QTC Calculation(Bezet): 484 ms P [place]: 43 degrees Calculated R [place]: 37 degrees Calculated T [place]: 64 degrees Diagnosis Line: Normal sinus rhythm Diagnosis Line: Nonspecific T wave abnormality Diagnosis Line: Prolonged QT Diagnosis Line: Abnormal ECG Diagnosis Line: When compared with ECG of 18-NOV-2016 15:00, Diagnosis Line: Premature atrial complexes are no longer Present Diagnosis Line: Confirmed by JACQUELINE GARZA MD ([id number]) on 01/31/2017 Diagnosis Line: 11:02:48 PM INTERPRETING MD: KAYLA MI
--- NOTE | ~2017-01-31 | CT71 ---
[facility] A Service of [facility] & [facility] RADIOLOGY TEXT RESULTS PATIENT: SEBAS BARONE LOCATION: [facility] : 48 UNIT #: [id number] AGE: [address]: Rory Núñez MD SEX: M ORDER DR: [id number] [facility] [address] [place], [place] [address] [id number] E MR#: [id number] Acc #: [id number] NAME: SEBAS BARONE : 1950 SEX: M STUDY DATE/TIME: 01/31/2017 19:47 UNIT: [facility] ROOM: STUDY DESCRIPTION: CT Head Wo Contrast Attending Physician: Rory Núñez M.D. Ordering Physician: Rory Núñez M.D. Primary Care Physician: Autumn Rodriguez M.D. MEDICAL IMAGING REPORT This report is preliminary unless electronic signature is present EXAM CT head without IV contrast COMPARISON November 18, 2016 and January 12, 2013 as well as October 19, 2013. INDICATIONS 67-year-old male with weakness and confusion for 2 days. History of hypertension and diabetes mellitus. FINDINGS This CT exam was performed with one or more of the following radiation dose reduction techniques: Automatic exposure control, adjustment of mA and/or kV according to patient size, and iterative reconstruction. Mastoid air cells, middle ears, visualized paranasal sinuses are well aerated. There is a small mucous retention cyst versus polyp in the left frontal sinus. No acute fracture or suspicious osseous lesion. There are calcifications in the bilateral vertebral arteries and cavernous internal carotid arteries. There is some nonspecific expansion of the bony nasal turbinates, perhaps reflecting chronic rhinitis. There is grossly stable moderate to severe cerebral volume loss for patient age. Confluent moderate white matter hypoattenuation is stable in both frontal lobes, with findings suggesting lacunar infarcts within the white matter of the right insula and the head of the right caudate nucleus. There is also apparent lacunar infarct at the level of the right lentiform nucleus, possibly extending into the internal capsule. Similar chronic-appearing infarct in the left internal capsule posteriorly and possibly involving the left lentiform nucleus. There is a chronic lacunar infarct at the left thalamus. Chronic focal infarct in left huang also noted. There is also focal white matter hypoattenuation in the left cerebellum, which is stable. Findings are all consistent with chronic small vessel ischemic change. No convincing evidence of acute ischemia. [facility] A Service of [facility] RADIOLOGY TEXT RESULTS PATIENT: SEBAS BARONE LOCATION: [facility] : 48 UNIT #: [id number] AGE: [address]: Rory Núñez MD SEX: M ORDER DR: IMPRESSION 1. No acute intracranial abnormality. Stable moderate to severe chronic small vessel ischemic changes as described in the body of the report with stable moderate to severe cerebral and cerebellar volume loss. 2. Arterial calcifications. 3. Small mucous retention cyst versus polyp left maxillary sinus. Dictated by... Kel Regan M.D. THIS IS AN ELECTRONICALLY VERIFIED REPORT Kel Regan M.D. at 02/04/2017 8:43 AM SHARATH/osvaldo TD: 02/01/2017 00:09 JOB #: [id number] MEDICAL IMAGING REPORT Page 1 of 1 COPY
[2017-01-31 19:33] LABS: POC - CKMB <1.0 ng/mL (0.0-7.9); POC - TROPONIN <0.05 ng/mL (<=0.05)
[2017-01-31 19:53] LABS: BASOPHIL# 0.1 X10e3 (0-0.3); BASOPHIL% 0.7 % (0-2.5); EOSINOPHIL# 0.1 X10e3 (0-0.7); EOSINOPHIL% 0.8 % (0.0-7.0); HEMATOCRIT 41.3 % (38.0-50.0); HEMOGLOBIN 13.1 gm/dL (13.0-16.0); LYMPHOCYTE# 3.6 X10e3 (1.0-3.5); LYMPHOCYTE% 29.8 % (17.0-45.0); MEAN CELL VOLUME 80.6 FL (83-96); MEAN CORPUSCULAR HEMOGLOBIN 25.6 PG (28-34); MEAN CORPUSCULAR HGB CONC 31.7 g/dL (30-36); MEAN PLATELET VOLUME 10.4 FL (6.5-11.5); MONOCYTE# 1.2 X10e3 (0-1.0); MONOCYTE% 9.7 % (3.0-12.0); NEUTROPHIL# 7.1 X10e3 (1.5-7.1); PLATELET COUNT 148 X10e3 (140-420); RED BLOOD COUNT 5.12 X10e (3.90-5.60); RED CELL DISTRIBUTION WIDTH 15.9 % (11.0-15.5)
[2017-01-31 19:59] LABS: DIFF IND NO
[~2017-01-31 20:05] MED LIST changes: -ALFUZOSIN HCL10 MG PO; -COUMADIN6 MG PO; -FLUOXETINE HCL10 MG PO; -GLUCOTROL10 MG PO; -LAXATIVE8.6 M1 PO; -LIPITOR80 MG PO; -PANTOPRAZOLE SO40 MG PO; -WARFARIN SODIUM2 M1 PO
[2017-01-31 20:13] LABS: ALBUMIN SERUM 3.2 g/dL (3.5-5.0); BILIRUBIN, DIRECT 0.1 mg/dL (0.0-0.2); BILIRUBIN,INDIRECT 0.6 mg/dL (0.0-0.9); BILIRUBIN,TOTAL 0.7 mg/dL (0.2-2.0); BUN/CREATININE RATIO 12.22; CALCIUM SERUM 8.7 mg/dL (8.4-10.2); CREATININE SERUM 1.8 mg/dL (0.6-1.4); GLOM FILT RATE Estimated 43.5 mL/min (>60); POTASSIUM 4.2 mmol/L (3.5-5.1); PROTEIN TOTAL SERUM 7.6 g/dL (6.0-8.3)
[2017-01-31 21:25] LABS: INR 1.9; PARTIAL THROMBOPLASTIN TIME 36.4 SECONDS (23.5-31.3); PROTHROMBIN TIME (PATIENT) 20.1 SECONDS (9.6-11.5)
[2017-01-31 21:47] LABS: URINE SOURCE CLEAN CATCH
[2017-01-31 22:04] LABS: URINE APPEARANCE CLEAR; URINE BILIRUBIN NEG (NEG); URINE BLOOD 1+ (NEG); URINE COLOR YELLOW; URINE GLUCOSE NEG (NEG); URINE KETONE NEG (NEG); URINE LEUKOCYTE ESTERASE NEG (NEG); URINE NITRATE NEG (NEG); URINE PH 6.5 (5-8); URINE PROTEIN 3+ (NEG); URINE SPECIFIC GRAVITY 1.013 (1.003-1.035)
[2017-01-31 22:06] LABS: URINE BACTERIA AUWI NEG (NEGATIVE); URINE SQUAMOUS EPITHELIAL CELL NONE SEEN /[HPF]
[2017-01-31 22:10] LABS: CULTURE INDICATED? NO
[2017-01-31 22:36] LABS: POC - TROPONIN <0.05 ng/mL (<=0.05)
== END 2017-01-31 22:40 | disposition home or self-care (01) ==
LOC: CED 20:05
PROVIDERS: Emergency Medicine
DX: R55 Syncope and collapse (principal); R53.1 Weakness; I13.0 Hypertensive heart and chronic kidney disease with heart failure and stage 1 through stage 4 chronic kidney disease, or unspecified chronic kidney disease; E11.22 Type 2 diabetes mellitus with diabetic chronic kidney disease; E11.40 Type 2 diabetes mellitus with diabetic neuropathy, unspecified; N18.9 Chronic kidney disease, unspecified; I50.9 Heart failure, unspecified; Z86.73 Personal history of transient ischemic attack (TIA), and cerebral infarction without residual deficits; Z90.49 Acquired absence of other specified parts of digestive tract; Z98.890 Other specified postprocedural states; Z79.01 Long term (current) use of anticoagulants
CPT/HCPCS: 36415; 70450; 71010; 80048; 80076; 81003; 82553; 82947; 84484; 85025; 85610; 85730; 93005; 99284; 99285

== ENCOUNTER → 2017-02-12 | Outpatient (CLI) | payer MEDICARE ==
[~2017-02-12] MED LIST changes: +ALFUZOSIN HCL10 MG PO; +COUMADIN6 MG PO; +FLUOXETINE HCL10 MG PO; +GLUCOTROL10 MG PO; +LAXATIVE8.6 M1 PO; +LIPITOR80 MG PO; +PANTOPRAZOLE SO40 MG PO; +WARFARIN SODIUM2 M1 PO
[2017-02-12 18:15] LABS: URINE APPEARANCE CLEAR; URINE BILIRUBIN NEG (NEG); URINE BLOOD 2+ (NEG); URINE COLOR YELLOW; URINE GLUCOSE NEG (NORM); URINE KETONE NEG (NEG); URINE LEUKOCYTE ESTERASE NEG (NEG); URINE NITRATE NEG (NEG); URINE PROTEIN 3+ (NEG); URINE SOURCE VOID
[2017-02-12 18:16] LABS: MICRO INDICATED? YES; URINE BACTERIA NEG (NEG); URINE SQUAMOUS EPITHELIAL CELL OCCAS /[HPF]; URINE WBC 0-2 /[HPF] (0-5)
[2017-02-12 18:18] LABS: ALBUMIN SERUM 3.3 g/dL (3.5-5.0); BASOPHIL% 0.6 % (0-2.5); BILIRUBIN,TOTAL 0.4 mg/dL (0.2-2.0); BUN/CREATININE RATIO 11.11; CALCIUM SERUM 8.8 mg/dL (8.4-10.2); CREATININE SERUM 1.8 mg/dL (0.6-1.4); EOSINOPHIL# 0.1 X10e3 (0-0.7); EOSINOPHIL% 1.1 % (0.0-7.0); GLOM FILT RATE Estimated 43.5 mL/min (>60); HEMATOCRIT 40.7 % (38.0-50.0); HEMOGLOBIN 13.3 gm/dL (13.0-16.0); LYMPHOCYTE# 2.6 X10e3 (1.0-3.5); LYMPHOCYTE% 33.5 % (17.0-45.0); MEAN CELL VOLUME 80.4 FL (83-96); MEAN CORPUSCULAR HEMOGLOBIN 26.2 PG (28-34); MEAN CORPUSCULAR HGB CONC 32.6 g/dL (30-36); MEAN PLATELET VOLUME 8.9 FL (6.5-11.5); MONOCYTE# 0.7 X10e3 (0-1.0); MONOCYTE% 8.5 % (3.0-12.0); NEUTROPHIL# 4.5 X10e3 (1.5-7.1); NEUTROPHIL% 56.3 % (40-75); PLATELET COUNT 164 X10e3 (140-420); PROTEIN TOTAL SERUM 7.8 g/dL (6.0-8.3); RED BLOOD COUNT 5.07 X10e (3.90-5.60); RED CELL DISTRIBUTION WIDTH 16.3 % (11.0-15.5); WHITE BLOOD COUNT 7.9 X10e3 (4.0-10.5)
[2017-02-12 18:20] LABS: DIFF IND NO
[2017-02-13 00:02] LABS: CREATININE,RANDOM URINE 109 mg/dL; TOTAL PROTEIN,RANDOM URINE 64 mg/dl (<10)
== END | disposition home or self-care (01) ==
LOC: SLAB 14:40
PROVIDERS: Internal Medicine Nephrology
DX: N18.3 Chronic kidney disease, stage 3 (moderate) (principal)
CPT/HCPCS: 36415; 80053; 81003; 82570; 84156; 85025

== ENCOUNTER → 2017-05-03 | Outpatient (CLI) | payer MEDICARE ==
--- NOTE | ~2017-05-03 | US37 ---
[facility] A Service of [facility] & [facility] RADIOLOGY TEXT RESULTS PATIENT: SEBAS BARONE SR LOCATION: CNIV : 48 UNIT #: [id number] AGE: [address]: ANJUM WONG APRN SEX: M ORDER DR: [id number] [facility] [address] [place], [place] [address] [id number] O MR#: [id number] Acc #: [id number] NAME: SEBAS BARONE : 1950 SEX: M STUDY DATE/TIME: 05/03/2017 14:20 UNIT: CNIV ROOM: STUDY DESCRIPTION: US Carotid W/Doppler Bilateral Attending Physician: Anjum Wong Aprn Ordering Physician: Anjum Wong Aprn Primary Care Physician: Autumn Rodriguez M.D. MEDICAL IMAGING REPORT This report is preliminary unless electronic signature is present EXAM Bilateral carotid duplex, 05/03/2017 HISTORY Carotid stenosis. Stenosis noted on prior MRI. FINDINGS Duplex imaging of the carotid arteries was performed. The right common carotid artery is patent. Minimal plaque is seen in the right internal carotid artery. Velocity in the right common femoral is 147, internal is 113 and external is 96 cm/sec. Right ICA/CCA ratio is 0.7. On the left side the common carotid artery is patent. Mild plaque is seen in the left internal carotid artery. Velocity in the left common carotid is increased at 240 cm/sec, internal is 90 cm/sec and external is 81 cm/sec. Left ICA/CCA ratio is 0.3. Antegrade flow is seen in the right and left vertebral arteries. IMPRESSION Only minimal plaque is seen in the internal carotid artery with no hemodynamically significant stenosis bilaterally. The common carotid velocities on the left side are increased with no corresponding plaque. Antegrade flow is seen in the right and left vertebral arteries. Dictated by... Adan Crandall M.D. THIS IS AN ELECTRONICALLY VERIFIED REPORT Adan Crandall M.D. at 05/04/2017 4:04 PM [facility] A Service of [facility] & [facility] RADIOLOGY TEXT RESULTS PATIENT: SEBAS BARONE SR LOCATION: CNIV : 48 UNIT #: [id number] AGE: [address]: ANJUM WONG APRN SEX: M ORDER DR: TD: 05/04/2017 09:03 JOB #: [id number] MEDICAL IMAGING REPORT Page 1 of 1 COPY
--- NOTE | ~2017-05-03 | US136 ---
[facility] A Service of [facility] RADIOLOGY TEXT RESULTS PATIENT: SEBAS BARONE SR LOCATION: CNIV : 48 UNIT #: [id number] AGE: [address]: VICKI WONG APRN SEX: M ORDER DR: [id number] [facility] [address] [place], [place] [address] [id number] O MR#: [id number] Acc #: [id number] NAME: SEBAS BARONE : 1950 SEX: M STUDY DATE/TIME: 05/03/2017 13:53 UNIT: CNIV ROOM: STUDY DESCRIPTION: US U/L Ext Art Study Ltd Bil Attending Physician: Vicki Wong Aprn Ordering Physician: Vicki Wong Aprn Primary Care Physician: Autumn Rodriguez M.D. MEDICAL IMAGING REPORT This report is preliminary unless electronic signature is present EXAM Ankle to brachial indices HISTORY Peripheral vascular disease. FINDINGS Waveforms are dampened and biphasic on the right and left side. On the right side brachial pressure is 29, left brachial is 124. On the right side dorsalis pedis is 75, posterior tibial 74, great toe is 33 for a right ALEE of 0.58. On the left side posterior tibial is 106, dorsal pedis is 106, great toe is 88 for a left ankle to brachial index of 0.82. IMPRESSION Moderate peripheral vascular disease is seen in the right lower extremity with ALEE of 0.58. Mild peripheral vascular disease is seen in the left lower extremity with ALEE of 0.82. Dictated by... Adan Crandall M.D. THIS IS AN ELECTRONICALLY VERIFIED REPORT Adan Crandall M.D. at 05/04/2017 4:04 PM /bipin TD: 05/04/2017 08:56 JOB #: [id number] [facility] A Service of [facility] RADIOLOGY TEXT RESULTS PATIENT: SEBAS BARONE SR LOCATION: CNIV : 48 UNIT #: [id number] AGE: [address]: VICKI WONG APRN SEX: M ORDER DR: MEDICAL IMAGING REPORT Page 1 of 1 COPY
== END | disposition home or self-care (01) ==
LOC: CNIV 13:36
DX: I73.9 Peripheral vascular disease, unspecified (principal); I65.23 Occlusion and stenosis of bilateral carotid arteries
CPT/HCPCS: 93880; 93922

== ENCOUNTER → 2017-05-11 | Outpatient (CLI) | payer MEDICARE ==
[2017-05-11 10:39] LABS: BASOPHIL# 0.1 X10e3 (0-0.3); BASOPHIL% 0.9 % (0-2.5); EOSINOPHIL# 0.2 X10e3 (0-0.7); HEMATOCRIT 37.9 % (38.0-50.0); HEMOGLOBIN 12.5 gm/dL (13.0-16.0); LYMPHOCYTE# 2.4 X10e3 (1.0-3.5); LYMPHOCYTE% 29.5 % (17.0-45.0); MEAN CELL VOLUME 82.2 FL (83-96); MEAN CORPUSCULAR HEMOGLOBIN 27.1 PG (28-34); MEAN PLATELET VOLUME 9.2 FL (6.5-11.5); MONOCYTE# 0.7 X10e3 (0-1.0); MONOCYTE% 9.1 % (3.0-12.0); NEUTROPHIL# 4.8 X10e3 (1.5-7.1); NEUTROPHIL% 58.5 % (40-75); PLATELET COUNT 149 X10e3 (140-420); RED BLOOD COUNT 4.61 X10e (3.90-5.60); RED CELL DISTRIBUTION WIDTH 15.7 % (11.0-15.5); WHITE BLOOD COUNT 8.2 X10e3 (4.0-10.5)
[2017-05-11 10:47] LABS: DIFF IND NO
[2017-05-11 11:06] LABS: ALBUMIN SERUM 3.5 g/dL (3.5-5.0); BILIRUBIN,TOTAL 0.5 mg/dL (0.2-2.0); CALCIUM SERUM 8.5 mg/dL (8.4-10.2); GLOM FILT RATE Estimated 38.3 mL/min (>60); POTASSIUM 4.3 mmol/L (3.5-5.1); PROTEIN TOTAL SERUM 7.7 g/dL (6.0-8.3)
[2017-05-11 11:15] LABS: URINE APPEARANCE CLEAR; URINE BILIRUBIN NEG (NEG); URINE BLOOD 1+ (NEG); URINE COLOR YELLOW; URINE GLUCOSE NEG (NORM); URINE KETONE NEG (NEG); URINE LEUKOCYTE ESTERASE NEG (NEG); URINE NITRATE NEG (NEG); URINE PROTEIN 2+ (NEG); URINE UROBILINOGEN 0.2 MG/DL (NORM)
[2017-05-11 11:17] LABS: MICRO INDICATED? YES
[2017-05-11 11:21] LABS: URINE BACTERIA NEG (NEG); URINE RBC 0-2 /[HPF] (0-2); URINE SQUAMOUS EPITHELIAL CELL FEW /[HPF]
[2017-05-11 16:47] LABS: CREATININE,RANDOM URINE 159 mg/dL; TOTAL PROTEIN,RANDOM URINE 104 mg/dl (<10)
== END | disposition home or self-care (01) ==
LOC: SLAB 10:21
PROVIDERS: Internal Medicine Nephrology
DX: N18.3 Chronic kidney disease, stage 3 (moderate) (principal)
CPT/HCPCS: 36415; 80053; 81003; 82570; 84156; 85025

== ENCOUNTER 2017-06-12 21:21 | Observation (INO) | payer MEDICARE ==
--- NOTE | ~2017-06-12 | EKG ---
PATIENT: SEBAS BARONE UNIT #: [id number] Ventricular Rate: 75 BPM Atrial Rate: 75 BPM P-R Interval: 152 ms QRS Duration: 84 ms Q-T Interval: 418 ms QTC Calculation(Bezet): 466 ms P [place]: 70 degrees Calculated R [place]: 52 degrees Calculated T [place]: 63 degrees Diagnosis Line: Normal sinus rhythm Diagnosis Line: Normal ECG Diagnosis Line: When compared with ECG of 31-JAN-2017 19:39, Diagnosis Line: T wave inversion no longer evident in Lateral Diagnosis Line: leads Diagnosis Line: Confirmed by CHIP HERNANDEZ MD ([id number]) on 06/13/2017 Diagnosis Line: 11:06:18 PM INTERPRETING MD: DAVID MI
--- NOTE | ~2017-06-12 | HP ---
Unit #: [id number] #: [id number] Patient: SEBAS BARONE SR [id number] [address] [place], [place] [address] [id number] I MR#: [id number] NAME: SEBAS BARONE SR ROOM: 339 Age: 67 Sex: M Admission Date: 06/13/2017 : 1950 Attending Physician: Joelle Martinez M.D. Primary Care Physician: Autumn Rodriguez M.D. HISTORY AND PHYSICAL HISTORY AND PHYSICAL/DISCHARGE SUMMARY REASON FOR ADMISSION The patient is status post a fall and acute kidney injury. HISTORY OF PRESENT ILLNESS The patient is a pleasant 67-year-old male, who was admitted to our hospital in 11/2016. 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 He was subsequently transitioned to rehab facility, went to [facility] and from there, was transitioned back home. He states since approximately 12/2016 until now, he has been otherwise doing well, following up with his routine physicians. Unfortunately, he states when his went out to the grocery store, he had to go to the bathroom, he got up on his own accord, using the walker went to the bathroom, came back. When he went back to sit on his bed, he missed the edge of the bed. He slid forward onto his right knee. He suffered a right knee abrasion very superficial in origin, was too weak to stand. His found him, brought him to the hospital for further evaluation. While he was evaluated in the emergency room. It was noted he did have mild acute kidney injury with a creatinine of 2.1 and GFR of 36, his routine baseline is closer to 1.7. Today on 06/13/2017, after receiving mild IV fluids/hydration through the night, his creatinine currently stands at 1.9. At the present time, he is comfortable. He denies any acute pain within his right knee. PAST MEDICAL HISTORY Subacute left CVA in 11/2016, aortic atheroma, on chronic anticoagulation with Coumadin, goal INR 2 to 3; dysphagia; prior history of aspiration pneumonia; chronic kidney disease, stage 3, baseline creatinine 1.7; diabetes type 2; chronic systolic heart failure; hypertension; moderate protein malnutrition; diabetic peripheral neuropathy; GERD; iron deficiency anemia. PAST SURGICAL HISTORY Unit #: [id number] #: [id number] Patient: SEBAS BARONE SR Cholecystectomy. SOCIAL HISTORY The patient quit smoking approximately 3 years ago after 50- to 88-kfky-wahk smoking history. At home, lives with his . Uses a walker for routine ambulation. No alcohol use. No illicit drug use. FAMILY HISTORY Mother with diabetic. ALLERGIES No known drug allergies. HOME MEDICATIONS Aspirin, iron, hydrochlorothiazide, lisinopril, folic acid, stool softener, Lantus, B12, gabapentin, Lipitor, Flomax, laxatives, Prozac, Glucotrol, Protonix, and Coumadin. REVIEW OF SYSTEMS Please see HPI. Twelve-point otherwise negative except for those positive noted in the HPI. PHYSICAL EXAMINATION VITAL SIGNS: Temperature 98.4, pulse 81, respiratory rate 16, blood pressure 142/70. GENERAL APPEARANCE: The patient is a very pleasant 67-year-old male, lying comfortably, in no acute distress. HEAD: Atraumatic. NECK: Supple. CVS: S1 and S2 without murmur. RESPIRATORY: Clear. GI/ABDOMEN: Nontender and nondistended. EXTREMITIES: Lower extremity exam, no calf tenderness. No lower extremity edema. Right lower extremity reveals an abrasion, superficial over the right knee. No evidence of any acute bleeding at the present time. The patient has full range of motion within his right knee. There is no tenderness to palpation. Mild crepitus is noted within the right knee. NEUROLOGICAL: The patient is A and O x3 at the present time. PSYCHIATRIC: The patient demonstrates normal mood and affect. INITIAL ASSESSMENT 1. Status post fall. 2. Right knee abrasion. 3. Mild acute kidney injury. 4. Prior cerebrovascular accident history. 5. Prior chronic obstructive pulmonary disease history. 6. Chronic systolic heart failure, ejection fraction estimated at 30%. 7. Dysphagia/dysphonia, appears at baseline. PLAN The patient was admitted through the night, received mild IV fluid/rehydration. Recheck of his creatinine currently stands at 1.9, it had shown improvement. I had a lengthy discussion with him in regard to overall fluid status. Secondary to his prior history of systolic heart failure, I have encouraged gentle p.o. hydration while at home. It seems likely that some of his elevated creatinine may be secondary to his lying on the floor for several hours before being found. At this point in time, Unit #: [id number] #: [id number] Patient: SEBAS BARONE SR he has a full range of motion with his right knee. There is no indication for any further workup. I will have PT evaluate him prior to discharge. If he is deemed appropriate and safe, he will be discharged home to resume his routine medications. He is to follow up with his primary care physician, Dr. Rodriguez, in approximately 7 to 10 days for repeat BMP and CBC, and certainly his chronic kidney disease may be followed as an outpatient and diabetes and/or other medications may be contributing. FINAL DISCHARGE MEDICATIONS Remain unchanged from home medications and are as follows: Ferrous sulfate 325 mg p.o. q.8; hydrochlorothiazide 25 mg p.o. daily; lisinopril 10 mg p.o. daily; paroxetine 100 mg p.o. daily; folic acid 1 mg p.o. daily; stool softener q.h.s.; Lantus 10 units subcu q.h.s.; vitamin B12 of 500 mcg p.o. daily; Neurontin 600 mg p.o. b.i.d.; Lipitor 80 mg p.o. daily; alfuzosin 10 mg p.o. daily; Prozac 10 mg p.o. daily; Glucotrol 10 mg p.o. b.i.d.; Protonix 40 mg p.o. q.a.m.; Coumadin 4 mg daily Wednesday, Wednesday, , and Wednesday, 6 mg on Wednesday, Wednesday, and Wednesday. DISCHARGE CONDITION Stable. DISCHARGE DISPOSITION Home. DIAGNOSTIC STUDIES LABORATORY RESULTS: Discharge laboratory studies show a creatinine of 1.9 and INR of 2.3. Dictated by Eduardo Franks/elroy TD: 06/16/2017 03:05 JOB #: [id number] HISTORY AND PHYSICAL Page 1 of 1 X Joelle Martinez MD HISTORY AND PHYSICAL
--- NOTE | ~2017-06-12 | CR71 ---
[facility] A Service of [facility] & [facility] RADIOLOGY TEXT RESULTS PATIENT: SEBAS BARONE SR LOCATION: [facility] 339-01 : 48 UNIT #: [id number] AGE: [address]: Joelle Martinez MD SEX: M ORDER DR: [id number] [facility] [address]. [place], [place] [address] [id number] I MR#: [id number] Acc #: [id number] NAME: SEBAS BARONE SR : 1950 SEX: M STUDY DATE/TIME: 06/12/2017 22:55 UNIT: [address] ROOM: [facility] STUDY DESCRIPTION: CR Chest Single View Attending Physician: Joelle Martinez M.D. Ordering Physician: Apple Valdes M.D. Primary Care Physician: Autumn Rodriguez M.D. MEDICAL IMAGING REPORT This report is preliminary unless electronic signature is present EXAM Chest x-ray, 06/12 at 22:55. INDICATIONS Cough, congestion, shortness of air and pain after a fall today. FINDINGS AP view of the chest is compared with 01/31/2017. The heart remains enlarged. There is chronic scarring at the right base. Lungs otherwise are clear. There is no pneumothorax. There are old right-side rib fractures. IMPRESSION Stable cardiomegaly with chronic right base scarring. Old right-side rib fractures. No acute findings. Dictated by... Xavier Nelson Jr., M.D. THIS IS AN ELECTRONICALLY VERIFIED REPORT Xavier Nelson Jr., M.D. at 06/14/2017 9:09 PM TIARRA/eloisa TD: 06/14/2017 08:13 JOB #: [id number] MEDICAL IMAGING REPORT Page 1 of 1 COPY
[~2017-06-12 21:21] MED LIST changes: -ALFUZOSIN HCL10 MG PO; -COUMADIN6 MG PO; -FLUOXETINE HCL10 MG PO; -GLUCOTROL10 MG PO; -LAXATIVE8.6 M1 PO; -LIPITOR80 MG PO; -PANTOPRAZOLE SO40 MG PO; -WARFARIN SODIUM2 M1 PO
[2017-06-12 23:13] LABS: POC - CKMB 1.1 ng/mL (0.0-7.9); POC - TROPONIN <0.05 ng/mL (<=0.05)
[2017-06-12 23:23] LABS: INR 2.3; PROTHROMBIN TIME (PATIENT) 25.2 SECONDS (10.0-11.7)
[2017-06-12 23:24] LABS: ALBUMIN SERUM 3.4 g/dL (3.5-5.0); BILIRUBIN,TOTAL 0.2 mg/dL (0.2-2.0); BUN/CREATININE RATIO 11.9; CALCIUM SERUM 8.3 mg/dL (8.4-10.2); CREATININE SERUM 2.1 mg/dL (0.6-1.4); GLOM FILT RATE Estimated 36.1 mL/min (>60); POTASSIUM 5.2 mmol/L (3.5-5.1); PROTEIN TOTAL SERUM 7.6 g/dL (6.0-8.3)
[2017-06-12 23:25] LABS: BILIRUBIN, DIRECT 0.1 mg/dL (0.0-0.2); BILIRUBIN,INDIRECT 0.1 mg/dL (0.0-0.9)
[2017-06-13 00:37] LABS: POC - CKMB 1.1 ng/mL (0.0-7.9); POC - TROPONIN <0.05 ng/mL (<=0.05)
[2017-06-13] MEDS ORDERED: LIPITOR80 MG PO (00:55)
[2017-06-13] MEDS ORDERED: ALFUZOSIN HCL10 MG PO (00:56)
[2017-06-13] MEDS ORDERED: LAXATIVE8.6 M1 PO (00:57)
[2017-06-13] MEDS ORDERED: FLUOXETINE HCL10 MG PO (00:58)
[2017-06-13] MEDS ORDERED: GLUCOTROL10 MG PO (00:59)
[2017-06-13] MEDS ORDERED: PANTOPRAZOLE SO40 MG PO (00:59)
[2017-06-13] MEDS ORDERED: WARFARIN SODIUM2 M1 PO (01:01)
[2017-06-13] MEDS ORDERED: COUMADIN6 MG PO (01:02)
[2017-06-13 09:19] LABS: BUN/CREATININE RATIO 13.15; CALCIUM SERUM 8.1 mg/dL (8.4-10.2); CREATININE SERUM 1.9 mg/dL (0.6-1.4); GLOM FILT RATE Estimated 40.8 mL/min (>60); POTASSIUM 4.2 mmol/L (3.5-5.1)
== END 2017-06-13 15:45 | disposition home or self-care (01) ==
LOC: CED 21:21 → CEDOF 06-13 00:20 → CED 06-13 00:41 → CEDOF 06-13 00:41 → C3A PCU 06-13 08:21 → CEDOF 06-13 08:21 → C3A PCU 06-13 08:21
PROVIDERS: Emergency Medicine; Family Medicine
DX: N17.9 Acute kidney failure, unspecified (principal); I13.0 Hypertensive heart and chronic kidney disease with heart failure and stage 1 through stage 4 chronic kidney disease, or unspecified chronic kidney disease; E11.22 Type 2 diabetes mellitus with diabetic chronic kidney disease; I50.22 Chronic systolic (congestive) heart failure; E11.42 Type 2 diabetes mellitus with diabetic polyneuropathy; S80.211A Abrasion, right knee, initial encounter; J44.9 Chronic obstructive pulmonary disease, unspecified; R13.10 Dysphagia, unspecified; R49.0 Dysphonia; Z87.891 Personal history of nicotine dependence; Z86.73 Personal history of transient ischemic attack (TIA), and cerebral infarction without residual deficits; Z90.49 Acquired absence of other specified parts of digestive tract; W19.XXXA Unspecified fall, initial encounter
CPT/HCPCS: 36415; 71010; 80048; 80076; 82553; 82947; 83880; 84484; 85610; 93005; 97116; 97162; 99285; G0378; G8978-GP; G8979-GP